=== PATIENT | female | born 1970 | race Caucasian/White ===

== ENCOUNTER 2024-02-24 14:06 | Emergency (ER) | payer BC ==
[2024-02-24] MEDS ORDERED: Naloxone 0.4 MG/ML SDV IVPUSH PRN (17:04)
[2024-02-24] MEDS: HYDROmorphone 1 MG/ML Syringe IVPUSH ONE (17:57)
[2024-02-24] MEDS: Lidocaine 1% 10 ML MDV INJECT ONE (18:00)
== END 2024-02-24 20:18 | disposition home or self-care (01) ==
LOC: JD.ED 14:06
DX: S52.571A Other intraarticular fracture of lower end of right radius, initial encounter for closed fracture (principal); Z79.82 Long term (current) use of aspirin; Z79.899 Other long term (current) drug therapy; V80.010A Animal-rider injured by fall from or being thrown from horse in noncollision accident, initial encounter
CPT/HCPCS: 25605; 73110; 96374; 99284; J1170; J3490